=== PATIENT | male | born 1955 | race Caucasian/White ===

== ENCOUNTER 2022-07-03 20:51 | Inpatient (IN) | payer MEDICAID ==
[~2022-07-03] VITALS: Ht 172.7 cm; Wt 108.0 kg
[2022-07-03 21:46] LABS: BASO % 0.4 % (0.0-2.0); EOS % 0.6 % (0.0-4.0); GRAN # 4.1 K/mm3 (1.4-6.5); HEMATOCRIT 43.7 % (42.0-52.0); HEMOGLOBIN 15.6 g/dl (13.5-18.0); LYMPH # 2.3 K/mm3 (1.2-3.4); LYMPH % 31.6 % (20.0-51.0); MEAN CELL VOLUME 89 fl (80.0-100.0); MEAN CORPUSCULAR HEMOGLOBIN 32 pg (27-31); MEAN CORPUSCULAR HGB CONC 36 g/dl (33.0-37.0); MEAN PLATELET VOLUME 10.1 fl (7.4-10.4); MONO # 0.7 K/mm3 (0.1-0.6); MONO % 9.7 % (1.7-9.3); PLATELET COUNT 207 K/mm3 (130-400); RED BLOOD COUNT 4.94 M/mm3 (4.20-5.60); REDCELL DISTRIBUTION WIDTH-CV 12.2 % (11.5-14.5)
[2022-07-03 22:13] LABS: ALANINE AMINOTRANSFERASE 33 U/L (0-55); ALBUMIN 3.9 gm/dL (3.4-4.8); ALKALINE PHOSPHATASE 75 U/L (40-150); ANION GAP 14 mmol/L (7-16); AST,SGOT 26 U/L (5-34); BILIRUBIN,TOTAL 0.5 mg/dL (0.2-1.2); BLOOD UREA NITROGEN 8 mg/dL (8-26); C-REACTIVE PROTEIN 0.52 mg/dL (0.00-0.50); CALCIUM 9.1 mg/dL (8.4-10.2); CARBON DIOXIDE 18 mmol/L (23-31); CHLORIDE 105 mmol/L (98-107); CREATININE, serum 0.95 mg/dL (0.72-1.25); GLUCOSE 131 mg/dL (70-99); POTASSIUM 3.6 mmol/L (3.5-4.5); SODIUM 137 mmol/L (136-145); TOTAL PROTEIN 7.5 gm/dL (6.2-8.1)
[2022-07-03 22:24] LABS: TROPONIN-I < 0.010 ng/mL (0.00-0.033)
--- NOTE | 2022-07-03 23:58 | NUR ---
Received report from ED nurse
[2022-07-04] VITALS (1111 sets, daily range): BP systolic 147–186; BP diastolic 78–94; PULSE 81–102; TEMP 97.8–98.3; O2SAT 89–100
--- NOTE | 2022-07-04 00:08 | NUR ---
Patient arrives to ICU room 8 via wheelchair. Patient is alert and oriented; he is able to ambulate independently to ICU bed. Initial vitals within normal limits. He arrives receiving humidified oxygen at 8L via trach collar satting 100%. Patient communicates with staff using an eletronic larynx device. He denies any pain or discomfort. IVF infusing according to orders in [facility].
--- NOTE | 2022-07-04 01:15 | NUR ---
Patient's belongings include street clothes, a pair of glasses, a cell phone and charging cord, an electronic larynx device, and his wallet. Patient denies having hearing aids, dentures, or removable jewelry on his person. Patient states his will be bringing a band sawmill operator for his speaking device tomorrow.
[2022-07-04 06:17] LABS: BASO % 0.2 % (0.0-2.0); GRAN # 3.8 K/mm3 (1.4-6.5); GRAN % 85.3 % (42.2-75.2); HEMATOCRIT 44.3 % (42.0-52.0); HEMOGLOBIN 15.5 g/dl (13.5-18.0); LYMPH # 0.5 K/mm3 (1.2-3.4); LYMPH % 12.1 % (20.0-51.0); MEAN CELL VOLUME 90 fl (80.0-100.0); MEAN CORPUSCULAR HEMOGLOBIN 31 pg (27-31); MEAN CORPUSCULAR HGB CONC 35 g/dl (33.0-37.0); MEAN PLATELET VOLUME 10.3 fl (7.4-10.4); MONO # 0.1 K/mm3 (0.1-0.6); MONO % 1.3 % (1.7-9.3); PLATELET COUNT 184 K/mm3 (130-400); RED BLOOD COUNT 4.95 M/mm3 (4.20-5.60); REDCELL DISTRIBUTION WIDTH-CV 12.3 % (11.5-14.5)
[2022-07-04 06:33] LABS: CALCIUM 8.8 mg/dL (8.4-10.2); CREATININE, serum 0.9 mg/dL (0.72-1.25); POTASSIUM 4.5 mmol/L (3.5-4.5)
--- NOTE | 2022-07-04 08:15 | NUR ---
Resting in bed watching TV; alert and oriented and in no distress. Reports still coughing up some bloody clots but denies any shortness of air. Assisted to call in breakfast. Denies any other needs at this time.
--- NOTE | 2022-07-04 11:13 | NUR ---
Initial visit; Patient and his thanked Share Holder for looking in on him and asked Share Holder if she prayed over the intercom this morning. When machine i cutter said that was her he and his said how much it cheered him up and liked the prayer a lot. Share Holder was glad he liked the prayer and said he would keep Lalit in his prayers.
--- NOTE | 2022-07-04 11:35 | NUR ---
SO met with patient at bedside to complete intake. Patients Laron ([phone]) is present at bedside. Patient reports that he is fully independent with his ADL's and IADL's. He does not utilize any DME to assist with mobility and has no home oxygen needs. Patient see's and in [facility], however he verbalizes difficulty getting to those appointment since moving to [place] in August 2021. Patient utilizes [facility] for prescriptions. He denies having any currently home health care coming in to assist with his trach. Patient believes that he created a DPOA-HC while at [facility] with his as his agent.
[2022-07-04 11:37] LABS: INR 1.3 (0.8-3.0); PROTHROMBIN TIME 14.6 SECONDS (9.7-12.8)
[2022-07-05] VITALS (337 sets, daily range): BP systolic 108–159; BP diastolic 70–87; PULSE 74–94; TEMP 98.2–98.3; O2SAT 92–100
[2022-07-05 05:37] LABS: BASO % 0.1 % (0.0-2.0); GRAN # 9.5 K/mm3 (1.4-6.5); GRAN % 89.3 % (42.2-75.2); HEMATOCRIT 42.3 % (42.0-52.0); HEMOGLOBIN 14.4 g/dl (13.5-18.0); LYMPH # 0.8 K/mm3 (1.2-3.4); LYMPH % 7.5 % (20.0-51.0); MEAN CELL VOLUME 92 fl (80.0-100.0); MEAN CORPUSCULAR HEMOGLOBIN 31 pg (27-31); MEAN CORPUSCULAR HGB CONC 34 g/dl (33.0-37.0); MEAN PLATELET VOLUME 10.2 fl (7.4-10.4); MONO # 0.3 K/mm3 (0.1-0.6); MONO % 2.4 % (1.7-9.3); PLATELET COUNT 182 K/mm3 (130-400); RED BLOOD COUNT 4.61 M/mm3 (4.20-5.60); REDCELL DISTRIBUTION WIDTH-CV 12.7 % (11.5-14.5)
[2022-07-05 05:53] LABS: CALCIUM 8.6 mg/dL (8.4-10.2); CREATININE, serum 0.93 mg/dL (0.72-1.25); POTASSIUM 4.2 mmol/L (3.5-4.5)
--- NOTE | 2022-07-05 08:15 | NUR ---
Awake and alert watching TV. Reported sleeping "very well" last night. Reports no issues with his stoma and no shortness of air. Will continue to monitor.
[2022-07-05] MEDS ORDERED: LEVAQUIN 750MG750 M1 PO (08:51)
[2022-07-05] MEDS ORDERED: NORVASC2.5 MG PO (08:52)
[2022-07-05] MEDS ORDERED: PRINIVIL20 MG PO (08:52)
[2022-07-05] MEDS ORDERED: PREDNISONE10 MG PO (08:54)
--- NOTE | 2022-07-05 11:02 | NUR ---
fur floor worker met with PT in his room to discuss discharge planning. Plastic Block Boiler Reliner discussed PT's discharge on this day per his MD, adressing his transportation home. PT stated that his son will be picking him up this afternoon.
--- NOTE | 2022-07-05 12:10 | NUR ---
Reviewed discharge paperwork with patient; verbalized understanding. Removed monitoring devices and INT. Assisted out to ER and left with family member.
== END 2022-07-05 12:10 | disposition home or self-care (01) | DRG 203 ==
LOC: COL.ER 20:51 → ICU 22:22
PROVIDERS: Emergency Medicine; Internal Medicine; Student in an Organized Health Care Education/Training Program; ADMIT Internal Medicine
DX: J04.10 Acute tracheitis without obstruction (principal); J39.8 Other specified diseases of upper respiratory tract; I10 Essential (primary) hypertension; Z93.0 Tracheostomy status; Z85.21 Personal history of malignant neoplasm of larynx; Z87.891 Personal history of nicotine dependence; Z88.0 Allergy status to penicillin
CPT/HCPCS: OP; J0360; J1650; J1956; J2060; J2920; J2930; J3475; J7030